=== PATIENT | female | born 1970 | race Hispanic/Latino ===

== ENCOUNTER 2017-12-01 09:15 | Outpatient (CLI) | payer BC | END 2017-12-01 09:16 | disposition home or self-care (01) | LOC: BICMAMMO 09:15 | PROVIDERS: ATTEND Physician Assistant | DX: Z12.31 Encounter for screening mammogram for malignant neoplasm of breast (principal) | CPT/HCPCS: 77063; 77067 ==

== ENCOUNTER 2018-12-06 10:37 | Outpatient (CLI) | payer BC ==
--- NOTE | 2018-12-06 11:26 | MMO ---
Bilateral MAMMO Bilat Screen [facility]. CLINICAL HISTORY: Patient is 48 years old and is seen for screening. The patient has no family history of breast cancer. The patient has no personal history of cancer. VIEWS: The views performed were: bilateral craniocaudal with tomosynthesis; bilateral mediolateral oblique with tomosynthesis; and left craniocaudal. FILMS COMPARED: The present examination has been compared to a prior imaging study performed at [facility] on 12/01/2017. MAMMOGRAM FINDINGS: There are scattered fibroglandular densities. Right breast: There are no suspicious masses, calcifications or areas of architectural distortion. Left breast: Enlarging oval mass deep in the upper inner quadrant, currently measuring 2.7 cm. In the right breast, there are no suspicious masses, calcifications or areas of architectural distortion. IMPRESSION: FINDING IN THE LEFT BREAST REQUIRES ADDITIONAL EVALUATION. ADDITIONAL PROJECTIONS (LEFT MEDIOLATERAL) ARE RECOMMENDED. ULTRASOUND IS RECOMMENDED. THE RESULTS OF THIS EXAM WERE SENT TO THE PATIENT. ACR BI-RADS Category 0 - Incomplete: Need additional imaging evaluation. [facility] will notify the patient of the need for additional imaging services. MAMMOGRAPHY NOTE: 1. A negative mammogram report should not delay a biopsy if a dominant of clinically suspicious mass is present. 2. Approximately 10% to 15% of breast cancers are not detected by mammography. 3. Adenosis and dense breasts may obscure an underlying neoplasm. Reported by: JUAN MIGUEL RUST MD Electonically Signed: [id number]
== END 2018-12-06 10:38 | disposition home or self-care (01) ==
LOC: BICMAMMO 10:37
PROVIDERS: ATTEND Physician Assistant
DX: Z12.31 Encounter for screening mammogram for malignant neoplasm of breast (principal)
CPT/HCPCS: 77063; 77067

== ENCOUNTER 2018-12-18 10:14 | Outpatient (CLI) | payer BC ==
--- NOTE | 2018-12-18 11:07 | MMO ---
Left Breast MAMMO Unilat Diag [facility]. CLINICAL HISTORY: Patient is 48 years old and is seen for additional evaluation requested from prior study. The patient has no family history of breast cancer. The patient has no personal history of cancer. VIEWS: The views performed were: left craniocaudal spot compression with tomosynthesis and left mediolateral with tomosynthesis. FILMS COMPARED: The present examination has been compared to prior imaging studies performed at [facility] on 12/01/2017, 12/06/2018 and 12/18/2018. MAMMOGRAM FINDINGS: Mass in the left breast persists on additional images. Ultrasound shows a hypoechoic mass with internal blood flow. IMPRESSION: FINDING IN THE LEFT BREAST IS SUSPICIOUS. AN ULTRASOUND-GUIDED BREAST BIOPSY IS RECOMMENDED. FINDINGS DISCUSSED WITH MARIBELL FLOWER ON 12/18/18 AT 11:02 HOURS. THE RESULTS OF THIS EXAM WERE SENT TO THE PATIENT. ACR BI-RADS Category 4 - Suspicious abnormality - biopsy should be considered MAMMOGRAPHY NOTE: 1. A negative mammogram report should not delay a biopsy if a dominant of clinically suspicious mass is present. 2. Approximately 10% to 15% of breast cancers are not detected by mammography. 3. Adenosis and dense breasts may obscure an underlying neoplasm. Reported by: DAMIAN SAMUEL MD Electonically Signed: [id number]
--- NOTE | 2018-12-18 11:22 | ULT ---
LIMITED ULTRASOUND LEFT BREAST: HISTORY: Mass, left breast. Sonographic evaluation recommended. FINDINGS: There is a hypoechoic, circumscribed mass in the left breast, at the 10 o'clock position, which corre sponds to the mammographic abnormality. This mass measures 1.9 cm x 1.2 cm x 1.9 cm. Color-flow gary luation does demonstrate internal flow within this mass. There is slight lobulation seen along the a nterior aspect of the mass, and this mass is located just beneath the skin surface. No additional ma ss is seen, and there is no cystic lesion identified. IMPRESSION: 1. BI-RADS category 4-Suspicious abnormality. Biopsy is recommended. 2. Hypoechoic, circumscribed mass, left breast, 10 o'clock position. This mass is amenable to ultra sound-guided left breast biopsy. The above findings were discussed with Melissa Romano PA-C, on 12/18/2018, at 1102 hours. CODE CR POS: OFF
--- NOTE | 2018-12-18 11:58 | MMO ---
Left Breast MAMMO Unilat Diag [facility]. CLINICAL HISTORY: Patient is 48 years old and is seen for breast biopsy. The patient has no family history of breast cancer. The patient has no personal history of cancer. VIEWS: The views performed were: left craniocaudal and left mediolateral oblique. FILMS COMPARED: The present examination has been compared to prior imaging studies performed at [facility] on 12/01/2017, 12/06/2018 and 12/18/2018. MAMMOGRAM FINDINGS: There is a mass with associated biopsy clip seen in the upper-inner region of the left breast. IMPRESSION: MASS IN THE LEFT BREAST IS CONFIRMED UTILIZING POST PROCEDURE MAMMOGRAM. THE RESULTS OF THIS EXAM WERE SENT TO THE PATIENT. MAMMOGRAPHY NOTE: 1. A negative mammogram report should not delay a biopsy if a dominant of clinically suspicious mass is present. 2. Approximately 10% to 15% of breast cancers are not detected by mammography. 3. Adenosis and dense breasts may obscure an underlying neoplasm. Reported by: DAMIAN SAMUEL MD Electonically Signed: [id number]
--- NOTE | 2018-12-18 17:20 | ULT ---
ULTRASOUND GUIDED BIOPSY LEFT BREAST MASS ULTRASOUND GUIDED BIOPSY MARKER CLIP PLACEMENT AT SITE OF BIOPSY LEFT BREAST 12/18/18 HISTORY: Mass left breast. TECHNIQUE: After informed consent was obtained, patient placed on the sonography table in the supine position. M ass in the left breast 10 o'clock position was localized with ultrasound guidance. An area was marked and then meticulously prepped and draped in the usual sterile fashion. Skin and subcutaneous tissues were infiltrated with buffered 1% lidocaine for local anesthesia. A sma ll skin incision was made. A total of four 14 gauge core needle biopsy specimens were obtained of the mass. Biopsy marker clip was then deployed utilizing sonographic guidance. Hemostasis was achieved with direct pressure. Dry sterile dressing was placed. Patient tolerated the procedure well without immediate complication. IMPRESSION: 1. Technically successful ultrasound guided biopsy of left breast mass. 2. Technically successful biopsy marker clip placement within the left breast mass. POS: OFF
== END 2018-12-18 10:15 | disposition home or self-care (01) ==
LOC: BICMAMMO 10:14
PROVIDERS: ATTEND Physician Assistant
DX: N63.22 Unspecified lump in the left breast, upper inner quadrant (principal)
CPT/HCPCS: 19083; 88305; G0279

== ENCOUNTER 2023-11-20 13:34 | Inpatient (IN) | payer BC ==
[2023-11-20 15:42] LABS: #Basophils 0.03 10x3/uL (0.0-0.2); %Basophils 0.3 % (0.0-1.0); %Eosinophils 0.6 % (0.0-10.0); %Lymphocytes 21.6 % (21.0-51.0); %Monocytes 4.4 % (0.0-10.0); %Neutrophils 72.5 % (42.0-75.0); Hematocrit 37.5 % (36.0-47.0); Hemoglobin 12.9 g/dL (12.0-16.0); Mean Corpuscular HGB CONC 34.4 g/dL (32.0-36.0); Mean Corpuscular Hemoglobin 30.8 pg (27.0-31.0); Mean Corpuscular Volume 89.5 fL (78.0-98.0); Mean Platelet Volume 9.6 fL (7.4-10.4); Platelet Count 380 10x3/uL (130-400); RBC Distribution Width 13.2 % (11.5-14.5); Red Blood Cell (RBC) Count 4.19 mill/uL (4.20-5.40)
[2023-11-20 16:55] LABS: Anion Gap 16 mmol/L (10-20); Carbon Dioxide 22 mmol/L (22-29); Chloride 100 mmol/L (98-107); Potassium 4.1 mmol/L (3.5-5.1); Sodium 134 mmol/L (136-145)
[2023-11-20 17:18] LABS: ALT (SGPT) 22 U/L (8-55); AST (SGOT) 16 U/L (5-34); Albumin 2.9 g/dL (3.5-5.0); Alkaline Phosphatase 143 U/L (40-110); BUN (Urea Nitrogen) 12 mg/dL (9.8-20.1); Bilirubin, Total 0.3 mg/dL (0.2-1.2)
[2023-11-20 17:20] LABS: Calc. Creatinine Clearance 0 mL/min (70-130); Calcium 9.6 mg/dL (7.8-10.44); Estimated GFR 77; Globulin 4.7 g/dL (2.4-3.5); Glucose 416 mg/dL (70-105); Protein, Total 7.6 g/dL (6.0-8.3)
[2023-11-20] MEDS ORDERED: Cefepime 2 GM VIAL ONE (18:47)
[2023-11-20] MEDS ORDERED: Sodium Chloride 0.9% 100 ML ONE (18:47)
[2023-11-20] MEDS ORDERED: hydrALAZINE 20 MG/ML VIAL ONE (19:58)
[2023-11-20] MEDS: Vancomycin (BATCH) 2 GM in Premix 1 BAG IVPB SCH (20:00)
[2023-11-20] MEDS ORDERED: Glucagon 1 MG/ML KIT IM PRN (20:43)
[2023-11-20] MEDS ORDERED: Dextrose 50% Abboject 50 ML SYRINGE SLOW IVP PRN (20:43)
[2023-11-20] MEDS ORDERED: Ondansetron PF 4 MG/2 ML Vial IVP PRN (20:43)
[2023-11-20] MEDS ORDERED: Acetaminophen 325 MG TAB PO PRN (20:43)
[2023-11-20] MEDS ORDERED: Dextrose 5% in Water 1,000 ML IV PRN (20:43)
[2023-11-20 22:11] VITALS: BMI 34.4
[2023-11-20 22:13] LABS: Hemoglobin A1c 13.6 % (4.0-6.0)
[2023-11-20] MEDS: Insulin Glargine 30 UNITS/0.3 ML VIAL SC SCH (23:11)
[2023-11-20] MEDS: Lisinopril 10 MG TAB PO SCH (23:12)
[2023-11-20] MEDS: Heparin 5,000 UNITS/ML VIAL SC SCH (23:14)
[2023-11-20] MEDS: Lactated Ringer's 1,000 ML IV SCH (23:37)
[2023-11-21] MEDS: Piperacillin/Tazobactam 3.375 GM in Sodium Chloride 0.9% 100 ML IVPB SCH ×2 (00:17→05:05)
[2023-11-21 04:32] LABS: #Basophils Less than 0.03 10x3/uL (0.0-0.2); %Basophils 0.2 % (0.0-1.0); %Eosinophils 0.4 % (0.0-10.0); %Lymphocytes 21.1 % (21.0-51.0); %Monocytes 4.1 % (0.0-10.0); %Neutrophils 73.6 % (42.0-75.0); Hemoglobin 12.1 g/dL (12.0-16.0); Mean Corpuscular HGB CONC 34.6 g/dL (32.0-36.0); Mean Corpuscular Hemoglobin 31.8 pg (27.0-31.0); Mean Corpuscular Volume 92.1 fL (78.0-98.0); Mean Platelet Volume 9.7 fL (7.4-10.4); Platelet Count 412 10x3/uL (130-400); RBC Distribution Width 13.1 % (11.5-14.5)
[2023-11-21 04:41] LABS: Anion Gap 18 mmol/L (10-20); BUN (Urea Nitrogen) 9 mg/dL (9.8-20.1); Calc. Creatinine Clearance 122 mL/min (70-130); Calcium 9.3 mg/dL (7.8-10.44); Carbon Dioxide 18 mmol/L (22-29); Cardiac Risk 5.7 (Less than 4.5); Chloride 106 mmol/L (98-107); Cholesterol 217 mg/dl (< 200 Desired); Estimated GFR 100; Glucose 294 mg/dL (70-105); HDL Cholesterol 38 mg/dL (>60 Neg Risk); LDL Cholesterol, Calculated 132 mg/dL; Potassium 3.9 mmol/L (3.5-5.1); Sodium 138 mmol/L (136-145); Triglycerides 236 mg/dL (Less than 150)
[2023-11-21 04:42] LABS: Vancomycin, Random 17.1 ug/mL (See Comment)
[2023-11-21] MEDS: HumaLOG 300 UNITS/3 ML VIAL SC PRN (06:47)
[2023-11-21] MEDS ORDERED: Morphine 4 MG/ML VIAL SLOW IVP PRN (07:57)
[2023-11-21] MEDS: Vancomycin 1 GM in Premix 1 BAG IVPB SCH ×2 (08:56→18:03)
[2023-11-21] MEDS: Lisinopril 20 MG TAB PO SCH (09:02)
[2023-11-21] MEDS: Amlodipine 5 MG TAB PO SCH (18:09)
[2023-11-21] MEDS: Insulin Glargine 30 UNITS/0.3 ML VIAL SC SCH (20:54)
[2023-11-22] MEDS: HumaLOG 300 UNITS/3 ML VIAL SC PRN (00:34)
[2023-11-22 04:48] LABS: #Basophils 0.03 10x3/uL (0.0-0.2); %Basophils 0.5 % (0.0-1.0); %Eosinophils 1.7 % (0.0-10.0); %Lymphocytes 28.3 % (21.0-51.0); %Monocytes 7.7 % (0.0-10.0); %Neutrophils 61.5 % (42.0-75.0); Hematocrit 33.7 % (36.0-47.0); Hemoglobin 11.3 g/dL (12.0-16.0); Mean Corpuscular HGB CONC 33.5 g/dL (32.0-36.0); Mean Corpuscular Hemoglobin 31.4 pg (27.0-31.0); Mean Corpuscular Volume 93.6 fL (78.0-98.0); Mean Platelet Volume 9.7 fL (7.4-10.4); Platelet Count 369 10x3/uL (130-400); RBC Distribution Width 13.4 % (11.5-14.5)
[2023-11-22 05:08] LABS: Anion Gap 14 mmol/L (10-20); BUN (Urea Nitrogen) 6 mg/dL (9.8-20.1); Calc. Creatinine Clearance 122 mL/min (70-130); Calcium 9.1 mg/dL (7.8-10.44); Carbon Dioxide 22 mmol/L (22-29); Chloride 106 mmol/L (98-107); Estimated GFR 100; Glucose 205 mg/dL (70-105); Magnesium 1.7 mg/dL (1.6-2.6); Potassium 3.6 mmol/L (3.5-5.1); Sodium 138 mmol/L (136-145)
[2023-11-22] MEDS: Amlodipine 5 MG TAB PO SCH (08:50)
[2023-11-22] MEDS: Lisinopril 20 MG TAB PO SCH (08:50)
[2023-11-22] MEDS: Labetalol HCl 100 MG/20 ML VIAL SLOW IVP PRN (13:46)
[2023-11-22] MEDS: Meclizine HCl 12.5 MG TAB PO SCH ×2 (14:29→14:39)
[2023-11-22] MEDS: Lorazepam 1 MG TAB PO PRN (14:29)
[2023-11-23 05:02] LABS: #Basophils 0.04 10x3/uL (0.0-0.2); %Basophils 0.6 % (0.0-1.0); %Eosinophils 2.3 % (0.0-10.0); %Lymphocytes 29.1 % (21.0-51.0); %Monocytes 7.1 % (0.0-10.0); %Neutrophils 60.4 % (42.0-75.0); Hematocrit 34.3 % (36.0-47.0); Hemoglobin 11.4 g/dL (12.0-16.0); Mean Corpuscular HGB CONC 33.2 g/dL (32.0-36.0); Mean Corpuscular Hemoglobin 31.3 pg (27.0-31.0); Mean Corpuscular Volume 94.2 fL (78.0-98.0); Mean Platelet Volume 10.1 fL (7.4-10.4); Platelet Count 378 10x3/uL (130-400); RBC Distribution Width 13.5 % (11.5-14.5); Red Blood Cell (RBC) Count 3.64 mill/uL (4.20-5.40)
[2023-11-23 05:21] LABS: Vancomycin, Random 12.8 ug/mL (See Comment)
[2023-11-23 05:24] LABS: Anion Gap 15 mmol/L (10-20); BUN (Urea Nitrogen) 6 mg/dL (9.8-20.1); Calc. Creatinine Clearance 113 mL/min (70-130); Carbon Dioxide 23 mmol/L (22-29); Chloride 107 mmol/L (98-107); Estimated GFR 91; Glucose 149 mg/dL (70-105); Magnesium 1.8 mg/dL (1.6-2.6); Potassium 3.3 mmol/L (3.5-5.1); Sodium 142 mmol/L (136-145)
[2023-11-23] MEDS ORDERED: Electrolyte Replacement Protocol 1 EACH FS SCH (07:45)
[2023-11-23] MEDS ORDERED: Electrolyte Replacement Protocol FS PRN (08:00)
[2023-11-23] MEDS: CEFAZOLIN 2 GM in Sodium Chloride 0.9% 100 ML IVPB SCH (10:13)
[2023-11-23] MEDS: Magnesium 2 GM/50 ML(in water) 2 GM in Premix 1 BAG IVPB SCH (10:14)
[2023-11-23] MEDS: Potassium Chloride 20 MEQ TAB PO SCH (10:14)
[2023-11-23 14:00] LABS: Potassium 3.8 mmol/L (3.5-5.1)
[2023-11-23] MEDS ORDERED: CEFAZOLIN 1 GM VIAL SLOW IVP SCH (14:00)
[2023-11-23] MEDS ORDERED: Lidocaine 1% w/Epinephrine 1:200K 30 ML VIAL FS SCH (16:00)
[2023-11-23] MEDS ORDERED: Bupivacaine/Epinephrine 0.25% 30 ML VIAL IJ SCH (16:00)
[2023-11-23] MEDS ORDERED: Lidocaine 1% w/Epinephrine 1:100K 20 ML VIAL FS SCH (17:15)
[2023-11-23] MEDS ORDERED: Bupivacaine 0.25% HCL 30 ML VIAL FS SCH (17:30)
[2023-11-24 05:20] LABS: Anion Gap 14 mmol/L (10-20); BUN (Urea Nitrogen) 6 mg/dL (9.8-20.1); Calc. Creatinine Clearance 120 mL/min (70-130); Carbon Dioxide 22 mmol/L (22-29); Chloride 109 mmol/L (98-107); Estimated GFR 98; Glucose 172 mg/dL (70-105); Potassium 3.6 mmol/L (3.5-5.1); Sodium 141 mmol/L (136-145)
[2023-11-24 06:16] LABS: #Basophils 0.04 10x3/uL (0.0-0.2); %Basophils 0.6 % (0.0-1.0); %Eosinophils 1.5 % (0.0-10.0); %Lymphocytes 27.6 % (21.0-51.0); Hemoglobin 11.6 g/dL (12.0-16.0); Mean Corpuscular HGB CONC 33.1 g/dL (32.0-36.0); Mean Corpuscular Hemoglobin 30.8 pg (27.0-31.0); Mean Corpuscular Volume 92.8 fL (78.0-98.0); Mean Platelet Volume 10.5 fL (7.4-10.4); Platelet Count 390 10x3/uL (130-400); RBC Distribution Width 13.7 % (11.5-14.5); Red Blood Cell (RBC) Count 3.77 mill/uL (4.20-5.40)
[2023-11-24] MEDS: Magnesium 2 GM/50 ML(in water) 2 GM in Premix 1 BAG IVPB SCH (09:49)
[2023-11-24 12:15] VITALS: BP 165/74; TEMP 98.5
== END 2023-11-24 16:20 | disposition home or self-care (01) | DRG 638 ==
LOC: ERS 13:34 → 2NO 20:54 → OBSVTOIN 20:54
PROVIDERS: ADMIT Student in an Organized Health Care Education/Training Program; ATTEND Family Medicine
PROC: 3E033XZ Introduction of Vasopressor into Peripheral Vein, Percutaneous Approach (ICD-10-PCS; principal; 2023-11-24)
PROC: 0J970ZZ Drainage of Back Subcutaneous Tissue and Fascia, Open Approach (ICD-10-PCS; 2023-11-24)
DX: E11.628 Type 2 diabetes mellitus with other skin complications (principal); L02.212 Cutaneous abscess of back [any part, except buttock and flank]; L03.312 Cellulitis of back [any part except buttock and flank]; E78.5 Hyperlipidemia, unspecified; I16.0 Hypertensive urgency; E87.6 Hypokalemia; B95.61 Methicillin susceptible Staphylococcus aureus infection as the cause of diseases classified elsewhere; L40.9 Psoriasis, unspecified; I10 Essential (primary) hypertension; Z88.2 Allergy status to sulfonamides; Z88.1 Allergy status to other antibiotic agents; Z79.899 Other long term (current) drug therapy; Z98.891 History of uterine scar from previous surgery; Z91.148 Patient's other noncompliance with medication regimen for other reason
CPT/HCPCS: 36415; 36416; 72157; 72158; 80048; 80053; 80061; 80202; 83036; 83735; 85025; 86141; 87040; 87070; 87077; 87186; 87205; 93005; 93010; 96374; 96375; 97139; J0360; J0692; J1644; J1815; J2543; J3370; J3370-JW; J3475; J3490; J7120